=== PATIENT | female | born 1940 | race Caucasian/White ===

== ENCOUNTER 2019-09-17 12:34 | Day surgery (SDC) | payer MEDICARE ==
[~2019-09-17] VITALS: Ht 162.6 cm; Wt 64.9 kg
[~2019-09-17 12:34] MED LIST: AMLO10; ASPI81EC PO; BLOOD PRESSURE MED; CYCL10 PO; Cardizem CD 12120 MG PO; Colace250 MG; FURO20 PO; LOSARTAN POTAS100 MG PO; LOVA20 PO; METO50ER PO; Norco 5-325 Ta1 EACH PO; Ranitidine HCl300 M1 PO; TUMS500 MG; VITAMIN D31000 UNI2 PO
--- NOTE | 2019-09-17 13:18 | NUR ---
09/17/19 1318 Maryse Tobias 1ST I.V. ATTEMPT IN RIGHT HAND 2MD I.V. ATTEMPT IN RIGHT HAND
== END 2019-09-17 14:35 | disposition home or self-care (01) ==
LOC: ORSCSDS 12:34
PROVIDERS: Internal Medicine Gastroenterology
PROC: 0DJD8ZZ Inspection of Lower Intestinal Tract, Via Natural or Artificial Opening Endoscopic (ICD-10-PCS; principal; 2019-09-17 14:30)
DX: R10.13 Epigastric pain (principal); K59.00 Constipation, unspecified; Z86.010 Personal history of colon polyps; K57.30 Diverticulosis of large intestine without perforation or abscess without bleeding; Z79.82 Long term (current) use of aspirin; Z79.899 Other long term (current) drug therapy
CPT/HCPCS: J2704; J7120

== ENCOUNTER → 2019-10-06 | Outpatient (CLI) | payer MEDICARE | END | disposition home or self-care (01) | LOC: LAB 10:30 → LAB SHORT 10:30 → LAB FUT 09-04 10:35 | DX: R10.13 Epigastric pain (principal) | CPT/HCPCS: 87338 ==

== ENCOUNTER 2022-06-02 09:07 | Inpatient (IN) | payer MEDICARE ==
[~2022-06-02] VITALS: Ht 162.6 cm; Wt 65.4 kg
[~2022-06-02 09:07] MED LIST changes: -AMLO10; +Amlodipine Bes2.5 MG
[2022-06-02 09:45] LABS: BASOPHILS ABSOLUTE AUTO 0.04 K/mm3 (0.00-0.23); BASOPHILS PERCENT AUTO 1 % (0-2); EOSINOPHILS ABSOLUTE AUTO 0.16 K/mm3 (0.00-0.68); EOSINOPHILS PERCENT AUTO 2 % (0-6); Hematocrit 37.9 % (33.0-51.0); Hemoglobin 12.2 g/dL (11.5-16.0); IMMATURE GRAN ABSOLUTE AUTO 0.04 K/mm3 (0.00-0.10); IMMATURE GRAN PERCENT AUTO 1 % (0-1); LYMPHOCYTES ABSOLUTE AUTO 1.26 K/mm3 (0.84-5.20); LYMPHOCYTES PERCENT AUTO 14 % (21-46); MONOCYTES ABSOLUTE AUTO 0.62 K/mm3 (0.16-1.47); MONOCYTES PERCENT AUTO 7 % (4-13); Mean Corpuscular HGB 30.2 pg (26.0-34.0); Mean Corpuscular HGB Conc 32.2 g/dL (31.5-36.5); Mean Corpuscular Volume 94 fL (80-100); Mean Platelet Volume 11.1 fL (9.1-12.4); NEUTROPHILS ABSOLUTE AUTO 6.73 K/mm3 (1.96-9.15); NEUTROPHILS PERCENT AUTO 76 % (41-73); Platelet Count 213 K/mm3 (150-400); RDW Coefficient Variation 13.8 % (11.7-14.2); Red Blood Cell Count 4.04 M/mm3 (3.80-5.20); White Blood Cell Count 8.85 K/mm3 (4.00-11.30)
[2022-06-02 10:32] LABS: Albumin, Blood 3.3 g/dL (3.4-5.0); Bilirubin, Total 0.3 mg/dL (0.1-1.0); Bun/Creatinine Ratio 20.3 (12.0-20.0); Calcium, Blood 8.9 mg/dL (8.5-10.1); Creatinine, Blood 0.89 mg/dL (0.40-1.00); Globulin, Blood 3.4 g/dL (2.2-4.0); Potassium, Blood 4.2 mmol/L (3.5-5.5); Total Protein, Blood 6.7 g/dL (6.4-8.2)
[2022-06-02] MEDS ORDERED: CLOP75 (13:41)
[2022-06-02] MEDS ORDERED: CARV3.125 (13:42)
[2022-06-02] MEDS ORDERED: LISI5 PO (13:42)
[2022-06-02] MEDS ORDERED: HYDCHL12.5 PO (13:43)
[2022-06-02] MEDS ORDERED: PLAVIX75 MG PO (13:50)
[2022-06-02 15:45] LABS: Anti-Xa UFH, PHA Monitoring <0.10 IU/mL; International Normalized Ratio 1.03; Prothrombin Time Results 10.8 Sec (9.7-11.5)
--- NOTE | 2022-06-02 18:26 | NUR ---
Echocardiogram completed.
[2022-06-02] MEDS ORDERED: VITAMIN B-1250 MCG (18:32)
[2022-06-02] MEDS ORDERED: METO50ER PO (18:33)
--- NOTE | 2022-06-02 18:54 | NUR ---
ADMIT: ALERT AND ORIENTED X4. NEURO WNL, WEARING GLASSES. DENIES NUMBNESS/TINGLING. ON ROOM AIR, LUNGS SOUNDING CLEAR. TELE SHOWING SINUS RHYTHM WITH PACS AND HR 60-70'S. BP STABLE. PATIENT STATES SHE HAS HISTORY OF HIGH BP. NO EDEMA. DENIES CHEST PAIN/PRESSURE AT THIS TIME. NITRO PASTE TO RIGHT UPPER CHEST WALL. STATES SHE HAS MINIMAL HEADACHE. NO SIGNS OF EDEMA. HEPARIN DRIP INFUSING. DENIES ABDOMINAL PAIN/NAUSEA. USING BSC WITH ONE PERSON ASSIST. EDUCATED ON FALL RISK WITH HEPARIN AND TO USE CALL LIGHT. PATIENT ABLE TO TEACH BACK. EATING DINNER AT THIS TIME. NPO AT MIDNIGHT PER DR. Herrmann. CARDIOLOGY CONSULT PLACED. NS TO START TONIGHT AT 2330 PER ORDERS. ORIENTED TO UNIT AND ALL SAFETY FEATURES. BED IN LOW LOCKED POSITION. CALL LIGHT IN REACH. DENIES NEEDS AT THIS TIME. WILL CONTINUE TO MONITOR AND REPORT OFF TO ONCOMING RN.
[2022-06-03 04:27] LABS: Hematocrit 35.3 % (33.0-51.0); Hemoglobin 11.6 g/dL (11.5-16.0); Mean Corpuscular HGB 30.3 pg (26.0-34.0); Mean Corpuscular HGB Conc 32.9 g/dL (31.5-36.5); Mean Corpuscular Volume 92 fL (80-100); Mean Platelet Volume 11.1 fL (9.1-12.4); Platelet Count 196 K/mm3 (150-400); RDW Coefficient Variation 13.8 % (11.7-14.2); RDW Standard Deviation 46.8 fL (35.1-46.3); Red Blood Cell Count 3.83 M/mm3 (3.80-5.20); White Blood Cell Count 6.98 K/mm3 (4.00-11.30)
[2022-06-03 04:49] LABS: Bun/Creatinine Ratio 19.1 (12.0-20.0); Calcium, Blood 8.8 mg/dL (8.5-10.1); Creatinine, Blood 0.79 mg/dL (0.40-1.00); Potassium, Blood 3.8 mmol/L (3.5-5.5)
--- NOTE | 2022-06-03 06:18 | NUR ---
NOC SHIFT SUMMARY PT SLEPT WELL OVERNIGHT, ORIENTED X4, VSS. HEP GTT AND IVF RUNNING PER PROVIDER ORDER. NPO SINCE 0000. MENEZES AND VOMITING AT BEGINNING OF SHIFT - PRNS GIVEN W/MINIMAL RELIEF AND PER CARDIOLOGY ROUNDING OK TO REMOVE NITRO PASTE IF SIDE EFFECTS CONTINUED. PT REQUESTED REMOVAL AND NAUSEA/MENEZES RESOLVED SHORTLY AFTER. ADEQUATE UOP, SBA TO BSC. WILL CONTINUE TO MONITOR AND PASS ON TO DAY RN
--- NOTE | 2022-06-03 10:52 | NUR ---
AM NOTE: PATIENT ALERT AND ORIENTED X4. NEURO WNL. WEARING GLASSES. SBA TO BSC. ON ROOM AIR SATING ABOVE 95%. DENIES SOB/COUGH. TELE SHOWING SINUS RHYTHM WITH HR 60-70'S. DENIES CHEST PAIN/PRESSURE. BP STABLE. REFUSED NITRO PATCH DUE TO IT MAKING PATIENT FEEL SICK. HEPARIN DRIP INFUSING. NS INFUSING AT 100 ML/HR. SPOKE WITH DR. Herrmann LAST NIGHT, POSSIBLE ANGIO TODAY. PATIENT HAS REMAINED NPO THROUGHOUT NIGHT. MEDS WITH WATER THIS AM. DENIES ABDOMINAL PAIN. HAS INTERMIT NAUSEA. ZOFRAN GIVEN THIS AM WITH GOOD RELIEF. LASIX IV GIVEN THIS AM WITH GOOD OUTPUT, SEE I/O DOCUMENTATION. USING BSC WITH SBA. CALLING TO MAKE NEEDS KNOWN. AND DAUGHTER AT BEDSIDE. DENIES NEEDS AT THIS TIME. WILL CONTINUE TO MONITOR.
--- NOTE | 2022-06-03 18:18 | NUR ---
SHIFT SUMMARY: NO ACUTE CHANGES. PATIENT HAS REMAINED CHEST PAIN/PRESSURE FREE. NITRO PATCH REFUSED DUE TO PATIENT FEELING SICK TO STOMACH AND SEVERE HEADACHE. HEPARIN DRIP CONTINUES TO INFUSE. NS INFUSING AT 100 ML/HR. NO CHANGES IN TELE. PATIENT HR INCREASES TO 120-140'S WHEN UP TO BSC AND RAPIDLY RETURNS TO 60-70'S. DENIES PALPITATIONS AND DIZZINESS. COMPLAINS OF NAUSEA THIS AM, MEDICATED WITH ZOFRAN WITH GOOD RELIEF. HAS REMAINED NPO ANTICIPATING ANGIOGRAM. THIS RN CALLED FOR UPDATE ON ANGIO X2. PATIENT STILL ON SCHEDULE FOR ANGIO TODAY/TONIGHT. FAMILY AT BEDSIDE. PATIENT AND FAMILY ANXIOUS IN ANTICIPATION OF ANGIO ALL DAY. DENIES NEEDS AT THIS TIME. WILL CONTINUE TO MONITOR AND REPORT OF TO ONCOMING RN.
--- NOTE | 2022-06-03 18:41 | NUR ---
THIS RN JUST UPDATED, BOOKSTORE CLERK PLAN TO PICK PATIENT UP IN ABOUT 15 MIN. PATIENT AND FAMILY UPDATED.
[2022-06-04 04:05] LABS: BASOPHILS ABSOLUTE AUTO 0.04 K/mm3 (0.00-0.23); BASOPHILS PERCENT AUTO 1 % (0-2); EOSINOPHILS ABSOLUTE AUTO 0.19 K/mm3 (0.00-0.68); EOSINOPHILS PERCENT AUTO 3 % (0-6); Hematocrit 35.9 % (33.0-51.0); Hemoglobin 11.9 g/dL (11.5-16.0); IMMATURE GRAN ABSOLUTE AUTO 0.01 K/mm3 (0.00-0.10); IMMATURE GRAN PERCENT AUTO 0 % (0-1); LYMPHOCYTES ABSOLUTE AUTO 1.62 K/mm3 (0.84-5.20); LYMPHOCYTES PERCENT AUTO 25 % (21-46); MONOCYTES ABSOLUTE AUTO 0.84 K/mm3 (0.16-1.47); MONOCYTES PERCENT AUTO 13 % (4-13); Mean Corpuscular HGB 30.6 pg (26.0-34.0); Mean Corpuscular HGB Conc 33.1 g/dL (31.5-36.5); Mean Corpuscular Volume 92 fL (80-100); Mean Platelet Volume 10.7 fL (9.1-12.4); NEUTROPHILS ABSOLUTE AUTO 3.67 K/mm3 (1.96-9.15); NEUTROPHILS PERCENT AUTO 58 % (41-73); Platelet Count 197 K/mm3 (150-400); RDW Standard Deviation 47.3 fL (35.1-46.3); Red Blood Cell Count 3.89 M/mm3 (3.80-5.20); White Blood Cell Count 6.37 K/mm3 (4.00-11.30)
[2022-06-04 04:31] LABS: Bun/Creatinine Ratio 14.1 (12.0-20.0); Calcium, Blood 8.7 mg/dL (8.5-10.1); Creatinine, Blood 0.92 mg/dL (0.40-1.00); Potassium, Blood 3.3 mmol/L (3.5-5.5)
--- NOTE | 2022-06-04 06:53 | NUR ---
NOC SHIFT SUMMARY PT ARRIVED BACK TO UNIT AFTER HEART CATH WITH R WRIST SITE. BEDSIDE REPORT RECEIVED FROM CATH RN. R WRIST SITE INSPECTED AT THIS TIME AND NOTED HEMATOMA ABOVE TR BAND. 2ND TR BAND APPLIED BY ASSESSMENT EXPERT STAFF AT BEDSIDE AFTER MANUAL PRESSURE WAS APPLIED. HEMATOMA STABLE, VSS PER PT TREND, AND TR BAND REMOVED WITHOUT INCIDENT AROUND 0100. CIRCLED AREA OF HEMATOMA FOR FURTHER REFERENCE, BUT SOFT TO TOUCH ABOVE WRIST SITE. SR --> AFIB RATE CONTROLLED ON TELEMETRY. PT STATES HX OF AFIB. PT SLEPT WELL OVERNIGHT, NO COMPLAINTS OF PAIN OR DISCOMFORT. WILL CONTINUE TO MONITOR AND PASS ON TO DAY RN WILL CONTINUE T
--- NOTE | 2022-06-04 10:41 | NUR ---
CARE ASSUMPTION THIS RN ASSUMED CARE FROM GAEL CUNNINGHAM AT 0700. VSS. TELE. PATIENT IS ALERT AND ORIENTED X4. PERRLA. NEURO INTACT. PATIENT REPROTS NO PAIN. PATIENT REPORTS NO SHORTNESS OF BREATH, CLEAR LUNG SOUNDS BILATERALLY. PATIENT REPORTS NO CHEST PAIN/PRESSURE. STRONG RADIAL AND PEDIS PULSES. NO EDEMA NOTED. PATINT ABD IS SOFT NONTENDER AND ACTIVE. PATIENT HAS A RIGHT RADIAL SITE S/P ANGIO 06/03. THERE IS A SMALL BRUISING AT THE SITE, WHICH LOOKNG AT THE ORGINAL OUTLINE HAS DECREASED SIGNIFCANTLY. THERE IS ALSO A BLOOD BLISTER BELOW ACCESS SITE. SITE ITSELF IS CLEAN DRY AND INTACT WITH NO SWELLING INFLAMMATION OR BLEEDING. SEE SHIFT ASSESSMENT FOR FURTHER DETAILS. PATIENT EDUCATED ON PLAN OF CARE. THIS RN USED THERAPEUTIC COMMUNICATION AND ACTIVE LISTENIGN WHEN PROVIDING EDUCATION. PATIENT HAS NO CONCERNS OR QUESTIONS AT THIS TIME. PATIENT ABLE TO PERFORM MORNING ADLS. PATIENT USES CALL LIGHT WHEN NEEDING ASSISTANCE. CALL LIGHT IS WITHIN REACH AND BED IN LOWEST POSITION. WILL CONTINUE TO MONITOR AND PROVIDE CARE. PLAN OF CARE UP TO DATE.
[2022-06-04] MEDS ORDERED: METO25 PO (11:23)
[2022-06-04] MEDS ORDERED: ATOR10 PO (11:24)
[2022-06-04] MEDS ORDERED: ELIQUIS5 M2 PO (11:24)
[2022-06-04] MEDS ORDERED: FURO40 PO (11:25)
[2022-06-04] MEDS ORDERED: POTASSIUM CHLO20 ME2 PO (11:26)
[2022-06-04] MEDS ORDERED: Acetaminophen650 M1 PO (11:28)
--- NOTE | 2022-06-04 12:35 | NUR ---
DISCHARGE THIS RN WENT OVER DISCHARGE EDUCATION WITH THE PATIENT AND PATIENT DAUGHTER. THIS RN WENT OVER WHICH MEDICATIONS TO STOP AND WHICH MEDICATIONS TO CONTINUE, AND NEW MEDICATIONS. THIS RN WENT OVER THE RATIONALE FOR EACH MEDICATION AND PROVIDED PRINTED HANDOUTS. NEW MEDICATIONS FAXED TO PHARMACY AND RECIEVED OKAY THAT THEY GOT THEM, [facility] IS WHERE THEY WENT. NEW MEDICATIONS ARE POTASSIUM, ELIQUIS, METOPROLOL TARTRATE, AND LIPITOR. PATIENT AND PATIENT DAUGHTER VERABLIZED UNDERSTANDING. THIS RN PROVIDED THEM WITH A 30 DAY FREE TRIAL FOR ELIQUIS TO SEE IF THEY QUALIFY FOR. THIS RN EDUCATED THEM ON FOLLOW UP WITH PRIMARY CARE PROVIDER, AND THAT THE ARCHAEOLOGY PROFESSOR OFFICE WOULD CALL THEM FOR A FOLLOW UP APPOINTMENT. DISCHARGE EDUCATION WITH PATIENT. IV REMOVED AND TIP IN PLACE. THIS RN WENT OVER POST RADIAL SITE CARE. PATIENT AND PATIENT DAUGHTER VERABLIZED UNDERSTANDING.
--- NOTE | 2022-06-04 13:22 | NUR ---
PATIENT LEFT-DISCHARGED PATIENT LEFT AT 1316 VIA WHEELCHAIR WITH HER DAUGHTER, ALL HER BELONGINGS, AND HER DISCHARGE PACKET. PATIENT WAS IN NO DISTRESS WHEN LEAVING THE UNIT.
== END 2022-06-04 13:17 | disposition home or self-care (01) | DRG 280 ==
LOC: ER 09:07 → ERHOLD 14:23 → PCU 14:23
PROVIDERS: Emergency Medicine; Internal Medicine; Nurse Practitioner Acute Care; ADMIT Internal Medicine
PROC: 4A023N7 Measurement of Cardiac Sampling and Pressure, Left Heart, Percutaneous Approach (ICD-10-PCS; principal; 2022-06-03)
PROC: B2111ZZ Fluoroscopy of Multiple Coronary Arteries using Low Osmolar Contrast (ICD-10-PCS; 2022-06-03)
DX: I21.4 Non-ST elevation (NSTEMI) myocardial infarction (principal); I50.31 Acute diastolic (congestive) heart failure; I25.10 Atherosclerotic heart disease of native coronary artery without angina pectoris; E78.5 Hyperlipidemia, unspecified; I48.0 Paroxysmal atrial fibrillation; I11.0 Hypertensive heart disease with heart failure; R79.89 Other specified abnormal findings of blood chemistry; Z79.82 Long term (current) use of aspirin; Z79.899 Other long term (current) drug therapy; Z91.013 Allergy to seafood; Z79.02 Long term (current) use of antithrombotics/antiplatelets; Z86.73 Personal history of transient ischemic attack (TIA), and cerebral infarction without residual deficits; Z98.51 Tubal ligation status; Z98.41 Cataract extraction status, right eye; Z98.42 Cataract extraction status, left eye; Z90.13 Acquired absence of bilateral breasts and nipples; Z98.890 Other specified postprocedural states
CPT/HCPCS: 36415; 71045; 76937; 80048; 80053; 83880; 84484; 85025; 85027; 85520; 85610; 85730; 93005; 93010; 93306; 93454; 96365-59; 99152; 99153; 99285-25; A9270; C1769; C1887; C1894; J1644; J1940; J2250; J2405; J3010; J7030; J7040; Q9967

== ENCOUNTER 2025-05-14 08:53 | Emergency (ER) | payer MEDICARE ==
[~2025-05-14] VITALS: Ht 162.6 cm; Wt 63.5 kg
[~2025-05-14 08:53] MED LIST changes: +ACET500 PO; +ATOR10 PO; +CARV3.125; +CLOP75; +ELIQUIS5 M2 PO; +FURO40 PO; +HYDCHL12.5 PO; +LISI5 PO; +METO25 PO; +PLAVIX75 MG PO; +POTASSIUM CHLO20 ME2 PO; +VITAMIN B-1250 MCG
[2025-05-14] MEDS ORDERED: FAMO20 PO (09:08)
[2025-05-14] MEDS ORDERED: ROSUVASTATIN CA20 MG PO (09:08)
[2025-05-14] MEDS ORDERED: LATA.005SO BOTHEYES (09:09)
[2025-05-14 09:34] LABS: BASOPHILS ABSOLUTE AUTO 0.04 K/mm3 (0.00-0.23); BASOPHILS PERCENT AUTO 1 % (0-2); EOSINOPHILS ABSOLUTE AUTO 0.09 K/mm3 (0.00-0.68); EOSINOPHILS PERCENT AUTO 2 % (0-6); Hematocrit 43.4 % (33.0-51.0); Hemoglobin 14.1 g/dL (11.5-16.0); IMMATURE GRAN ABSOLUTE AUTO 0.01 K/mm3 (0.00-0.10); IMMATURE GRAN PERCENT AUTO 0 % (0-1); LYMPHOCYTES ABSOLUTE AUTO 1.26 K/mm3 (0.84-5.20); LYMPHOCYTES PERCENT AUTO 22 % (21-46); MONOCYTES ABSOLUTE AUTO 0.65 K/mm3 (0.16-1.47); MONOCYTES PERCENT AUTO 12 % (4-13); Mean Corpuscular HGB Conc 32.5 g/dL (31.5-36.5); Mean Corpuscular Volume 94 fL (80-100); NEUTROPHILS ABSOLUTE AUTO 3.62 K/mm3 (1.96-9.15); NEUTROPHILS PERCENT AUTO 64 % (41-73); NRBC ABSOLUTE 0.00 K/mm3 (0.00-0.02); NRBC Auto 0.0 /100 WBC (0.0-0.2); Platelet Count 193 K/mm3 (150-400); RDW Coefficient Variation 14.3 % (11.7-14.2); RDW Standard Deviation 49.7 fL (35.1-46.3)
[2025-05-14 09:47] LABS: Alanine Aminotransfer (ALT/SGP 24.0 U/L (12-78); Albumin, Blood 3.6 g/dL (3.4-5.0); Albumin/Globulin Ratio 0.9 (0.8-1.8); Anion Gap 9.0 mmol/L (3-11); Aspartate Aminotrans (AST/SGOT 27.0 U/L (12-37); Bilirubin, Total 0.6 mg/dL (0.1-1.0); Blood Urea Nitrogen 16.0 mg/dL (8-24); CO2, Blood 27.0 mmol/L (21-32); Calcium, Blood 9.0 mg/dL (8.5-10.1); Chloride, Blood 107.0 mmol/L (98-108); Creatinine, Blood 0.78 mg/dL (0.40-1.00); Globulin, Blood 4.0 g/dL (2.2-4.0); Glucose, Blood 101.0 mg/dL (70-99); Magnesium, Blood 2.1 mg/dL (1.6-2.4); Potassium, Blood 4.3 mmol/L (3.5-5.5); Sodium, Blood 139.0 mmol/L (136-145); Total Protein, Blood 7.6 g/dL (6.4-8.2)
[2025-05-14] MEDS ORDERED: NS 500 ML IV SCH (09:55)
[2025-05-14] MEDS ORDERED: DiphenhydrAMINE HCl 50 MG/ML 1ML Vial IV ONE (11:05)
[2025-05-14] MEDS ORDERED: Metoclopramide HCl 5MG / ML 2ML Vial IV ONE (11:05)
[2025-05-14] MEDS ORDERED: REGLAN1013 PO (12:55)
[2025-05-14 13:17] VITALS: BP 156/84
[2025-05-14] MEDS ORDERED: Prinivil10 MG PO (19:38)
[2025-05-14] MEDS ORDERED: METO50ER PO (19:40)
[2025-05-15] MEDS ORDERED: TIMO.5OPSO BOTHEYES (13:58)
== END 2025-05-14 13:17 | disposition home or self-care (01) ==
LOC: ER 08:53
PROVIDERS: Student in an Organized Health Care Education/Training Program
DX: I10 Essential (primary) hypertension (principal); R51.9 Headache, unspecified; R53.1 Weakness; R20.0 Anesthesia of skin; Z91.013 Allergy to seafood; Z79.899 Other long term (current) drug therapy; Z79.01 Long term (current) use of anticoagulants; I48.91 Unspecified atrial fibrillation; E78.5 Hyperlipidemia, unspecified
CPT/HCPCS: 70450; 80053; 83735; 85025; 93005; 93010; 96374; 96375; 99284-25; A9270; J1200; J2765; J7030

== ENCOUNTER 2025-05-14 15:10 | Observation (INO) | payer MEDICARE ==
[~2025-05-14] VITALS: Ht 162.6 cm; Wt 63.5 kg
[~2025-05-14 15:10] MED LIST changes: +FAMO20 PO; +LATA.005SO BOTHEYES; +REGLAN1013 PO; +ROSUVASTATIN CA20 MG PO
[2025-05-14] MEDS ORDERED: Ondansetron HCl 2 MG / ML 2ML Vial IV PRN (17:20)
[2025-05-14] MEDS ORDERED: HydrALAZINE HCl 20 MG / ML 1ML Vial IV PRN (17:25)
[2025-05-14] MEDS ORDERED: NS 1,000 ML IV SCH (18:00)
[2025-05-14] MEDS ORDERED: Prinivil10 MG PO (19:38)
[2025-05-14] MEDS ORDERED: METO50ER PO (19:40)
[2025-05-14 21:40] VITALS: BP 191/74
[2025-05-14 23:34] VITALS: BP 171/75
--- NOTE | 2025-05-15 03:01 | NUR ---
ASSUMPTION OF CARE PATIENT ARRIVED TO THE FLOOR AT APPROX 1900. PT ARRIVED VIA GURNY AND WAS ABLE TO STAND PIVOT TRANSFER TO BED. A/O X4, FAMILY AT BEDSIDE. VITAL SIGNS OBTAINED, HYPERTENSION NOTED. PT REPORTING HEADACHE PAIN 8/10 AT THIS TIME. NO ORDERS FOR PRN PAIN MEDICATION. CALL PLACED TO RUG WEAVER , TYLENOL ORDERED Q4H PRN. TELE AND SCDS PLACED ON PT PER ORDERS. NO SIGNS OF WEAKNESS NOTED. PT REPORTS THAT NUMBNESS AND WEAKNESS HAS RESOLVED AT THIS TIME. NORMAL SPEECH AND ABLE TO ANSWER ALL QUESTIONS APPROPRIATELY. CALL LIGHT IN REACH, BED IN LOWEST POSITION.
[2025-05-15 03:54] VITALS: BP 168/81
--- NOTE | 2025-05-15 04:33 | NUR ---
SHIFT SUMMARY NO ACUTE CHANGES THROUGHOUT THE SHIFT. TREATED X2 FOR HEADACHE, TYLENOL PER EMAR, PT REPORTS ADEQUATE RELIEF. HYPERTENSIVE BUT BLOOD PRESSURE TRENDING DOWN. CONTINUES TO CALL APPROPRIATELY. BED IN LOWEST POSITION.
[2025-05-15 05:20] LABS: Hematocrit 38.4 % (33.0-51.0); Hemoglobin 12.2 g/dL (11.5-16.0); Mean Corpuscular HGB Conc 31.8 g/dL (31.5-36.5); Mean Corpuscular Volume 95 fL (80-100); NRBC ABSOLUTE 0.00 K/mm3 (0.00-0.02); NRBC Auto 0.0 /100 WBC (0.0-0.2); Platelet Count 175 K/mm3 (150-400); RDW Coefficient Variation 14.2 % (11.7-14.2); RDW Standard Deviation 49.9 fL (35.1-46.3)
[2025-05-15 05:47] LABS: Anion Gap 9.0 mmol/L (3-11); Blood Urea Nitrogen 13.0 mg/dL (8-24); CO2, Blood 25.0 mmol/L (21-32); Calcium, Blood 8.7 mg/dL (8.5-10.1); Chloride, Blood 111.0 mmol/L (98-108); Creatinine, Blood 0.72 mg/dL (0.40-1.00); Glucose, Blood 87.0 mg/dL (70-99); Potassium, Blood 3.7 mmol/L (3.5-5.5); Sodium, Blood 141.0 mmol/L (136-145)
[2025-05-15 07:24] VITALS: BP 187/94
[2025-05-15 08:41] VITALS: BP 175/77
[2025-05-15] MEDS ORDERED: TIMO.5OPSO BOTHEYES (13:58)
[2025-05-15 17:29] VITALS: BP 158/75
--- NOTE | 2025-05-15 17:40 | NUR ---
PT HAD C/O HEADACHE WITH PRN MEDICATION GIVEN. PT HAD SCHO AND MRI OF HEAD, SEE NOTES FOR DETAILS. PT HAD NO C/O SOB OR CHEST PAIN.
[2025-05-15 19:44] VITALS: BP 183/85
[2025-05-15] MEDS ORDERED: Latanoprost 0.005% Opth Soln 2.5 ML BOTHEYES SCH (21:00)
[2025-05-15 23:34] VITALS: BP 167/71
[2025-05-16] VITALS (11 sets, daily range): BP systolic 156–205; BP diastolic 73–87
--- NOTE | 2025-05-16 04:33 | NUR ---
SHIFT SUMMARY PATIENT A/O X4, IND IN THE ROOM. TYLENOL GIVEN X1 PRN FOR REPORT OF HEADACHE, WITH ADEQUATE PAIN RELIEF. PT CONTINUES ON TELE WITH REPORT OF ONE, SIX SECOND RUN OF SVT EVENT AT APPROX 1330. CHARGE NURSE JATIN NOTIFIED. PATIENT ASYMPTOMATIC. VOIDING WELL, PASSING GAS, AND CONSUMING ADEQUATE INTAKE. CALLING APPROPRIATELY. BED IN LOWEST POSITION. WILL REPORT TO ONCOMING RN.
--- NOTE | 2025-05-16 15:51 | NUR ---
PT BLOOD PRESSURE HAS REMAINED HIGH. DR. BAE ORDERED ONE TIME 10 MG LISINOPRIL IF B/P BELOW 180 SYSTOLICALLY CAN GO HOME.
[2025-05-16] MEDS ORDERED: HydrALAZINE HCl 20 MG / ML 1ML Vial IV PRN (16:20)
--- NOTE | 2025-05-16 19:26 | NUR ---
SUMMARY PT BLOOD PRESSURE CONTINUES TO BE ELEVATED. SCHEDULED B/P MEDS GIVEN THIS AM WITH NOT MUCH CHANGE ON RECHECK. DR. BAE NOTIFIED AND ADDED ONE TIME DOSE 10 OF LISINOPRIL. PT STARTED TO HAVE SOME NAUSEA AND VOMITING, ORIGINALLY PT DENIED NEED AFTER VOMITING, BUT CONTINUED TO HAVE NAUSEA SO IV ZOFRAN WAS GIVEN, WITH SOME RELIEF. PT ATE SOME BREAKFAST FROM WHAT FAMILY BROUGHT IN. BUT OTHERWISE PT HAD NAUSEA AT LUNCH, DID NOT WANT LUNCH. PT WAS MEDICATED X1 WITH HYDRALAZINE PER NEW PARAMETER OF SBP GREATER THAN 160, PT B/P INITIALLY RESPONDED AND CAME DOWN TO SBP OF 150'S. PT CALLED NOT LONG AFTER RECHECK STATING SHE "FELT FUNNY" UPON FURTHER QUESTIONING SHE STATED SHE FELT LIGHTHEADED AND FLUSHED. B/P RECHECK WAS BACK UP TO SBP OF 170'S. REPORT GIVEN TO LEON WHO WILL BE CALLING CHIEF GROWTH OFFICER DOC TO NOTIFY OF IV ZOFRAN NOT MANAGING NAUSEA/VOMITING. PT TELEMETRY HAS REMAINED NSR IN THE 60'S. EDUCATED PT TO NOT GET UP OOB WITHOUT ASSISTANCE FROM STAFF FAMILY HAS REMAINED AT BEDSIDE. PT BED ALARM ON. NONSKID SOCKS ON. ABLE TO MAKE NEEDS KNOWN. CALL LIGHT IN REACH.
[2025-05-16] MEDS ORDERED: Metoclopramide HCl 5MG / ML 2ML Vial IV PRN (19:35)
[2025-05-17] VITALS (7 sets, daily range): BP systolic 137–179; BP diastolic 68–81
--- NOTE | 2025-05-17 06:31 | NUR ---
PBX REPAIRER SUMMARY WITH HOSPITALIST CONTACT AT START OF SHIFT; FAMILY WAS AT BEDSIDE. PT HAD INTRACTABLE N&V MOST OF THE DAY. PT INTAKE WAS POOR A RESULT. PT HAD BEEN GETTING ZOFRAN IN REGULAR INTERVALS WITH LITTLE RELIEF. CALL TO HOSPITALIST. SPOKE WITH KARSTEN. NEW ORDER FOR REGLAN 10MG IV Q8PRN. DISUCSSED GIVING FLUIDS. KARSTEN DECIDED TO NOT ORDER FLUIDS DUE TO ECHO SHOWING DIASTOLIC HF. MEDICATED PT WITH REGLAN. VERY GOOD RESULT. PT REPORTED IMPROVED NAUSEA WITH NO MORE VOMITTING. PT SLEPT WELL T/O THE NIGHT. PT REMAINS ON TELE WITH NOT EVENTS. CALL LIGHT ACCESSIBLE. CARE WILL CONTINUE UNTIL REPORT GIVEN TO ONCOMING NURSE.
[2025-05-17 06:42] LABS: CHOL/HDL RATIO 1.5; Cholesterol 141 mg/dL (50-200); HDL Cholesterol 94 mg/dL (>39); LDL/HDL RATIO 0.3; Low Density Lipoprotein Chol 32 mg/dL (0-110); Triglycerides 74 mg/dL (30-160); Very Low Density Lipoprot Chol 14 mg/dL (6-32)
[2025-05-17] MEDS ORDERED: METO10 PO (16:59)
[2025-05-17] MEDS ORDERED: HYDCHL25 PO (17:00)
--- NOTE | 2025-05-17 18:26 | NUR ---
DISCHARGE: PT D/C @1713 VIA WHEELCHAIR WITH FAMILY. NEW MEDICATIONS FAXED TO [facility] PT ALREADY TOOK DAILY MEDICATIONS NEEDED. BLOOD PRESSURE STILL SLIGHTLY HYPERTENSIVE PRIOR TO D/C. SPOKE WITH DR. BAE STATING TO CONTINUE WITH D/C. PT AWARE TO MAKE FOLLOW-UP APPOINTMENT WITH PCP. NEW MEDICATIONS EXPLAINED TO PT. DISCUSSED PERAMETERS OF NEW MEDICATIONS. TELE SENT BACK. IV REMOVED W/O COMPLICATIONS.
== END 2025-05-17 17:13 | disposition home or self-care (01) ==
LOC: ER 15:10 → MEDS 19:16 → ENPENDDIS 05-17 13:19 → MEDS 05-17 17:13
PROVIDERS: Internal Medicine; Nurse Practitioner Acute Care; ADMIT Student in an Organized Health Care Education/Training Program
DX: I63.40 Cerebral infarction due to embolism of unspecified cerebral artery (principal); R20.2 Paresthesia of skin; G81.94 Hemiplegia, unspecified affecting left nondominant side; I25.10 Atherosclerotic heart disease of native coronary artery without angina pectoris; I10 Essential (primary) hypertension; I48.0 Paroxysmal atrial fibrillation; Z86.73 Personal history of transient ischemic attack (TIA), and cerebral infarction without residual deficits; Z91.013 Allergy to seafood; R51.9 Headache, unspecified; R53.1 Weakness; R20.0 Anesthesia of skin; Z79.899 Other long term (current) drug therapy; Z79.01 Long term (current) use of anticoagulants; I48.91 Unspecified atrial fibrillation; E78.5 Hyperlipidemia, unspecified
CPT/HCPCS: 36415; 70450; 70496; 70498; 70551; 80048; 80053; 80061; 83735; 85025; 85027; 93005; 93010; 93306; 93970; 96374; 96375; 96376; 97116; 97162; 97530; 99284-25; 99285-25; A9270; G0378; J0360; J1200; J2405; J2765; J7030; Q9967

== ENCOUNTER 2025-07-13 23:58 | Emergency (ER) | payer MEDICARE ==
[~2025-07-13] VITALS: Ht 162.6 cm; Wt 62.1 kg
[~2025-07-13 23:58] MED LIST changes: +HYDCHL25 PO; +METO10 PO; +Prinivil10 MG PO; +TIMO.5OPSO BOTHEYES
[2025-07-14 01:50] VITALS: BP 190/91
[2025-07-14] MEDS ORDERED: AZIT250 PO ×2 (05:30→05:40)
[2025-07-14 05:51] LABS: CORONAVIRUS COVID-19 AG Negative (NEGATIVE)
== END 2025-07-14 06:05 | disposition home or self-care (01) ==
LOC: ER 23:58
PROVIDERS: Emergency Medicine
DX: J18.9 Pneumonia, unspecified organism (principal); I10 Essential (primary) hypertension; I48.91 Unspecified atrial fibrillation; E78.5 Hyperlipidemia, unspecified; Z79.899 Other long term (current) drug therapy; Z91.013 Allergy to seafood
CPT/HCPCS: 71046; 87428-QW; 99283-25